=== PATIENT | male | born 1965 | race Caucasian/White ===

== ENCOUNTER 2018-10-23 20:35 | Emergency (ER) | payer OTHER, MEDICAID ==
[~2018-10-23] VITALS: Ht 172.7 cm; Wt 93.0 kg
[~2018-10-23 20:35] MED LIST: ASPI-231 PO; ATEN50TA PO; Farxiga PO; GEMF600T7 PO; LIDO5DIS21 TOP; LIS10T PO; LORA1TAB12 PO; MORP1TAB13 PO; OMEP20CA74 PO; OXYC10TA44 PO; PROM25TA5 PO; RANI150C11 PO; TRAM50TA2 PO
[2018-10-23 21:43] LABS: Basophils # (auto) 0.1 uL; Basophils % (auto) 0.6 % (0.0-2.0); Eosinophils # (auto) 0 uL; Eosinophils % (auto) 0.2 % (0.0-7.0); Hematocrit 43.7 % (41.0-53.0); Hemoglobin 14.5 g/dL (13.5-17.5); Lymphocytes # (auto) 1.6 uL; Lymphocytes % (auto) 12.5 % (10.0-50.0); Mean Corpuscular Hgb Conc. 33.1 g/dL (32.0-36.0); Mean Corpuscular Volume 84.4 fL (80.0-100.0); Monocytes # (auto) 0.7 uL; Monocytes % (auto) 5.1 % (0.0-12.0); Neutrophils # (auto) 10.8 uL; Neutrophils % (auto) 81.6 % (37.0-80.0); Nucleated Red Blood Cells % 0.1 %; Platelet Count (auto) 322 10^3/uL (140-450); Red Blood Cells 5.17 10^6/uL (4.5-5.90); Red Cell Distribution Width 13.5 % (11.8-14.3); White Blood Cell 13.2 10^3/uL (4.4-10.8)
[2018-10-23] MEDS ORDERED: ONDANSETRON HCL 4 MG/2 ML VIAL IV ONE (21:45)
[2018-10-23] MEDS ORDERED: SODIUM CHLORIDE 0.9% 250 ML IV ONE (21:45)
[2018-10-23] MEDS ORDERED: MORPHINE SULFATE 4 MG/ML SYR/VIAL IV ONE (21:45)
[2018-10-23 21:57] LABS: Albumin 4.4 g/dL (3.4-5.0); Calcium 9.7 mg/dL (8.5-10.1); Magnesium 2.2 mg/dL (1.6-2.6)
[2018-10-23 21:58] LABS: BUN/Creatinine Ratio 15.2
[2018-10-23 22:01] LABS: Bilirubin, Total 0.6 mg/dL (0.2-1.0)
[2018-10-23] MEDS ORDERED: LORazepam 2MG/ML-1ML VIAL IV ONE (23:00)
[2018-10-23] MEDS ORDERED: PROMETHAZINE HCL 25 MG/ML 1ML IV ONE (23:00)
[2018-10-23] MEDS ORDERED: PROMETHAZINE HCL 25 MG/ML 1ML ONE (23:04)
[2018-10-23] MEDS ORDERED: LORazepam 2MG/ML-1ML VIAL ONE (23:05)
[2018-10-23 23:12] LABS: Urine WBC None Seen /hpf (0 - 3)
[2018-10-23 23:25] LABS: Urine Bacteria NONE SEEN /hpf (None Seen); Urine Blood Negative /uL (Negative); Urine Hyaline Cast MOD /lpf (0 - 2); Urine Mucus FEW (None Seen)
[2018-10-23 23:48] LABS: Amphetamine Screen, Urine NEGATIVE (NEGATIVE); Barbiturate Scree,Urine NEGATIVE (NEGATIVE); Benzodiazephine Screen, Urine NEGATIVE (NEGATIVE); Cannabinoid Screen, Urine NEGATIVE (NEGATIVE); Cocaine Screen, Urine NEGATIVE (NEGATIVE); Opiate Scree,Urine NEGATIVE (NEGATIVE); Phencyclidine Screen, Urine NEGATIVE (NEGATIVE)
[2018-10-24] MEDS ORDERED: MORPHINE SULFATE 4 MG/ML SYR/VIAL IV ONE (01:30)
[2018-10-24] MEDS ORDERED: ONDANSETRON HCL 4 MG/2 ML VIAL IV ONE (01:30)
[2018-10-24 01:37] VITALS: BP 148/84
== END 2018-10-24 01:38 | disposition home or self-care (01) ==
LOC: ER 20:35
DX: R10.13 Epigastric pain (principal); M54.5 Low back pain; R11.0 Nausea; E11.9 Type 2 diabetes mellitus without complications; I10 Essential (primary) hypertension; Z88.1 Allergy status to other antibiotic agents; Z79.82 Long term (current) use of aspirin; Z79.899 Other long term (current) drug therapy; Z87.442 Personal history of urinary calculi
CPT/HCPCS: 36415; 71045; 74176; 80053; 80307; 81001; 83690; 83735; 85025; 93005; 96374; 96375; 96376; 99284; J2060; J2270; J2405; J2550; J7030

== ENCOUNTER 2020-01-10 09:47 | Emergency (ER) | payer OTHER, MEDICAID ==
[~2020-01-10] VITALS: Ht 172.7 cm; Wt 90.7 kg
[2020-01-10] MEDS ORDERED: ONDANSETRON ODT 4 MG TAB PO ONE (10:00)
[2020-01-10 10:24] LABS: Basophils # (auto) 0.1 10 ^3/uL (0-0.2); Basophils % (auto) 0.6 % (0.0-2.0); Eosinophils # (auto) 0 10 ^3/uL (0-0.8); Hematocrit 40.4 % (41.0-53.0); Hemoglobin 13.6 g/dL (13.5-17.5); Lymphocytes # (auto) 0.8 10 ^3/uL (0.4-5.4); Lymphocytes % (auto) 8.6 % (10.0-50.0); Mean Corpuscular Hemoglobin 28.9 pg (28.0-32.0); Mean Corpuscular Hgb Conc. 33.6 g/dL (32.0-36.0); Mean Corpuscular Volume 85.9 fL (80.0-100.0); Monocytes # (auto) 0.4 10 ^3/uL (0-1.3); Monocytes % (auto) 4.2 % (0.0-12.0); Neutrophils # (auto) 8.3 10 ^3/uL (1.6-8.6); Neutrophils % (auto) 86.6 % (37.0-80.0); Platelet Count (auto) 294 10^3/uL (140-450); Red Cell Distribution Width 14.2 % (11.8-14.3); White Blood Cell 9.6 10^3/uL (4.4-10.8)
[2020-01-10] MEDS ORDERED: PANTOPRAZOLE 40 MG/10 ML VIAL INJ IV STA (10:28)
[2020-01-10] MEDS ORDERED: SODIUM CHLORIDE 0.9% 1,000 ML IVB ONE (10:28)
[2020-01-10] MEDS ORDERED: ONDANSETRON HCL 4 MG/2 ML VIAL IV ONE (10:30)
[2020-01-10] MEDS ORDERED: HYDROmorphone HCL 2 MG/ML VL IV ONE ×2 (10:30→12:15)
[2020-01-10 10:48] LABS: Potassium 3.8 mmol/L (3.5-5.1)
[2020-01-10 10:55] LABS: Albumin 4.3 g/dL (3.4-5.0); BUN/Creatinine Ratio 13.8; Bilirubin, Total 0.6 mg/dL (0.2-1.0); Calcium 9.9 mg/dL (8.5-10.1); Total Protein 8.9 g/dL (6.4-8.2)
[2020-01-10] MEDS ORDERED: PROCHLORPERAZINE EDISYLATE 5 MG/ML 2ML VIAL IV ONE (12:15)
[2020-01-10 13:39] VITALS: BP 165/54
== END 2020-01-10 14:22 | disposition home or self-care (01) ==
LOC: ER 09:47
DX: R10.13 Epigastric pain (principal); R11.2 Nausea with vomiting, unspecified; E11.9 Type 2 diabetes mellitus without complications; I10 Essential (primary) hypertension; Z88.5 Allergy status to narcotic agent; Z88.1 Allergy status to other antibiotic agents; Z88.8 Allergy status to other drugs, medicaments and biological substances; Z79.899 Other long term (current) drug therapy
CPT/HCPCS: 36415; 76705; 80053; 83690; 83735; 85025; 96361; 96374; 96375; 96376; 99284; C9113; J0780; J1170; J2405; J7030; Q0162

== ENCOUNTER 2021-06-09 14:34 | Emergency (ER) | payer OTHER, MEDICAID ==
[~2021-06-09] VITALS: Ht 172.7 cm; Wt 86.2 kg
[~2021-06-09 14:34] MED LIST changes: +GEMF-19 PO; -GEMF600T7 PO; -LORA1TAB12 PO; +LORA1TAB23 PO
[2021-06-09] MEDS ORDERED: MORPHINE SULFATE 4 MG/ML SYR/VIAL ONE (14:52)
[2021-06-09] MEDS ORDERED: ONDANSETRON HCL 4 MG/2 ML VIAL ONE (14:52)
[2021-06-09] MEDS ORDERED: IOHEXOL 300 MG/ML 100ML BOTTLE IJ ONE (15:27)
[2021-06-09 16:59] LABS: Basophils # (auto) 0.1 10 ^3/uL (0-0.2); Basophils % (auto) 0.4 % (0.0-2.0); Eosinophils # (auto) 0 10 ^3/uL (0-0.8); Eosinophils % (auto) 0.1 % (0.0-7.0); Hematocrit 44.3 % (41.0-53.0); Hemoglobin 15.3 g/dL (13.5-17.5); Lymphocytes # (auto) 1.4 10 ^3/uL (0.4-5.4); Lymphocytes % (auto) 7.7 % (10.0-50.0); Mean Corpuscular Hgb Conc. 34.5 g/dL (32.0-36.0); Monocytes % (auto) 5.2 % (0.0-12.0); Neutrophils # (auto) 16.2 10 ^3/uL (1.6-8.6); Neutrophils % (auto) 86.6 % (37.0-80.0); Red Cell Distribution Width 13.2 % (11.8-14.3); White Blood Cell 18.7 10^3/uL (4.4-10.8)
[2021-06-09] MEDS ORDERED: HYDROmorphone HCL 2 MG/ML VL IV ONE ×3 (17:00→19:45)
[2021-06-09] MEDS ORDERED: SODIUM CHLORIDE 0.9% 1,000 ML IV ONE ×3 (17:00→20:00)
[2021-06-09] MEDS ORDERED: ONDANSETRON HCL 4 MG/2 ML VIAL IV ONE (17:00)
[2021-06-09 17:28] LABS: Albumin 4.1 g/dL (3.4-5.0); Anion Gap 10 (5-15); Blood Urea Nitrogen 15 mg/dL (7-18); Calcium 9.3 mg/dL (8.5-10.1); Carbon Dioxide 20 mmol/L (21-32); Chloride 109 mmol/L (98-107); Glucose 193 mg/dL (74-106); Potassium 4.1 mmol/L (3.5-5.1); Sodium 139 mmol/L (136-145)
[2021-06-09 17:35] LABS: Alanine Aminotransferase 41 U/L (16-61); Alkaline Phosphatase 103 U/L (45-117); Aspartate Aminotransferase 37 U/L (15-37); BUN/Creatinine Ratio 11.9; Bilirubin, Total 0.6 mg/dL (0.2-1.0); GFR African American 76 mL/min; GFR Non-African American 63 mL/min; Total Protein 8.8 g/dL (6.4-8.2)
[2021-06-09] MEDS ORDERED: METOCLOPRAMIDE HCL 5MG/ml INJ 2ml VIAL IV ONE (19:45)
[2021-06-09] MEDS ORDERED: PANTOPRAZOLE 40 MG/10 ML VIAL INJ IV ONE (20:00)
[2021-06-09 20:04] LABS: INR 1.06 (0.9-1.15); Partial Thromboplastin Time 24.1 sec (23.0-31.2)
[2021-06-09 20:59] VITALS: BP 138/92
== END 2021-06-09 21:12 | disposition short-term general hospital (02) ==
LOC: ER 14:34 → EDBD 14:34 → ER 21:12
DX: S22.089A Unspecified fracture of T11-T12 vertebra, initial encounter for closed fracture (principal); S22.22XA Fracture of body of sternum, initial encounter for closed fracture; S26.00XA Unspecified injury of heart with hemopericardium, initial encounter; E11.9 Type 2 diabetes mellitus without complications; Z87.442 Personal history of urinary calculi; V43.52XA Car driver injured in collision with other type car in traffic accident, initial encounter; Y93.89 Activity, other specified; Y92.488 Other paved roadways as the place of occurrence of the external cause; Y99.8 Other external cause status
CPT/HCPCS: 36415; 70450; 71260; 72125; 72128; 72131; 74177; 80053; 84484; 85025; 85610; 85730; 93005; 96361; 96374; 96375; 96376; 99285; C9113; J1170; J2270; J2405; J2765; J7030; Q9967

== ENCOUNTER 2023-07-31 17:01 | Emergency (ER) | payer OTHER, MEDICAID ==
[~2023-07-31] VITALS: Ht 172.7 cm; Wt 82.0 kg
[~2023-07-31 17:01] MED LIST changes: -ASPI-231 PO; +ASPI1TAB20 PO; -GEMF-19 PO; +GEMF-66 PO; +LORA-1123 PO; -LORA1TAB23 PO; +PROM25TA10 PO; -PROM25TA5 PO
[2023-07-31] MEDS ORDERED: ONDANSETRON HCL 4 MG/2 ML VIAL IV ONE ×2 (17:15→21:00)
[2023-07-31] MEDS ORDERED: SODIUM CHLORIDE 0.9% 2,000 ML IV ONE (17:15)
[2023-07-31] MEDS ORDERED: HYDROmorphone HCL 2 MG/ML VL/or syr IV ONE (17:15)
[2023-07-31 17:26] LABS: Basophils # (auto) 0.1 10 ^3/uL (0-0.2); Basophils % (auto) 0.6 % (0.0-2.0); Eosinophils # (auto) 0 10 ^3/uL (0-0.8); Hematocrit 41.2 % (41.0-53.0); Hemoglobin 13.9 g/dL (13.5-17.5); Lymphocytes # (auto) 0.8 10 ^3/uL (0.4-5.4); Lymphocytes % (auto) 7.2 % (10.0-50.0); Mean Corpuscular Hemoglobin 29.5 pg (28.0-32.0); Mean Corpuscular Hgb Conc. 33.6 g/dL (32.0-36.0); Mean Corpuscular Volume 87.7 fL (80.0-100.0); Monocytes # (auto) 0.3 10 ^3/uL (0-1.3); Monocytes % (auto) 2.7 % (0.0-12.0); Neutrophils # (auto) 10.5 10 ^3/uL (1.6-8.6); Neutrophils % (auto) 89.5 % (37.0-80.0); Red Cell Distribution Width 14.6 % (11.8-14.3); White Blood Cell 11.8 10^3/uL (4.4-10.8)
[2023-07-31 17:48] LABS: Alanine Aminotransferase 23 U/L (7-40); Albumin 5.7 g/dL (3.2-4.8); Alkaline Phosphatase 88 U/L (46-116); Anion Gap 12 (5-15); Aspartate Aminotransferase 25 U/L (13-40); BUN/Creatinine Ratio 13.8 (10.0-20.0); Bilirubin, Total 1.1 mg/dL (0.2-1.0); Blood Urea Nitrogen 15 mg/dL (9-23); Calcium 10.6 mg/dL (8.7-10.4); Carbon Dioxide 23 mmol/L (20-30); Chloride 107 mmol/L (98-107); Glucose 205 mg/dL (74-106); Potassium 4.2 mmol/L (3.5-5.1); Sodium 142 mmol/L (136-145); Total Protein 8.8 g/dL (5.7-8.2)
[2023-07-31 21:22] VITALS: TEMP 98.3; O2SAT 97
[2023-07-31] MEDS ORDERED: HYDROmorphone HCL 2 MG/ML VL/or syr IM ONE (21:30)
[2023-07-31 21:35] VITALS: BP 173/96; PULSE 90; RESP 18
[2023-07-31] MEDS ORDERED: IOHEXOL 300 MG/ML 100ML BOTTLE IJ ONE (23:22)
== END 2023-07-31 22:24 | disposition left against medical advice (07) ==
LOC: EDBD 17:01 → ER 17:01
DX: R10.84 Generalized abdominal pain (principal); E11.65 Type 2 diabetes mellitus with hyperglycemia; I10 Essential (primary) hypertension; E78.5 Hyperlipidemia, unspecified; F41.9 Anxiety disorder, unspecified; Z87.442 Personal history of urinary calculi; Z88.1 Allergy status to other antibiotic agents; Z88.6 Allergy status to analgesic agent; Z79.1 Long term (current) use of non-steroidal anti-inflammatories (NSAID); Z79.82 Long term (current) use of aspirin; Z79.899 Other long term (current) drug therapy
CPT/HCPCS: 36415; 74177; 80053; 82962; 84484; 85025; 93005; 96361; 96372; 96374; 96375; 96376; 99285; J1170; J2405; J7030; Q9967